=== PATIENT | male | born 1960 | race Caucasian/White ===

== ENCOUNTER 2019-01-01 15:42 | Inpatient (IN) | payer BC, OTHER | END 2019-01-04 16:15 | disposition home or self-care (01) | LOC: ER 15:42 → TELE 20:42 → TELE-WESTW 21:46 ==

== ENCOUNTER 2019-09-26 18:41 | Inpatient (IN) | payer BC ==
[~2019-09-26] VITALS: Ht 188 cm; Wt 114.0 kg
[2019-09-26 19:38] LABS: Basophils # (auto) 0 uL; Basophils % (auto) 0.1 % (0.0-2.0); Eosinophils # (auto) 0.2 uL; Eosinophils % (auto) 3.6 % (0.0-7.0); Hematocrit 41.6 % (41.0-53.0); Hemoglobin 14.6 g/dL (13.5-17.5); Lymphocytes # (auto) 1.2 uL; Lymphocytes % (auto) 25.7 % (10.0-50.0); Mean Corpuscular Hemoglobin 32.3 pg (28.0-32.0); Mean Corpuscular Hgb Conc. 35.1 g/dL (32.0-36.0); Mean Corpuscular Volume 92.1 fL (80.0-100.0); Monocytes # (auto) 0.4 uL; Monocytes % (auto) 8.9 % (0.0-12.0); Neutrophils # (auto) 2.8 uL; Neutrophils % (auto) 61.7 % (37.0-80.0); Nucleated Red Blood Cells % 0.1 %; Platelet Count (auto) 102 10^3/uL (140-450); Red Blood Cells 4.52 10^6/uL (4.5-5.90); Red Cell Distribution Width 12.4 % (11.8-14.3); White Blood Cell 4.5 10^3/uL (4.4-10.8)
[2019-09-26 19:49] LABS: Albumin 3.7 g/dL (3.4-5.0); Anion Gap 5 (5-15); Blood Urea Nitrogen 15 mg/dL (7-18); Calcium 9.1 mg/dL (8.5-10.1); Carbon Dioxide 31 mmol/L (21-32); Chloride 104 mmol/L (98-107); Glucose 118 mg/dL (74-106); Potassium 4.1 mmol/L (3.5-5.1); Sodium 140 mmol/L (136-145)
[2019-09-26 19:54] LABS: Alanine Aminotransferase 42 U/L (16-61); Alkaline Phosphatase 132 U/L (45-117); Aspartate Aminotransferase 50 U/L (15-37); BUN/Creatinine Ratio 16.5; Bilirubin, Total 0.6 mg/dL (0.2-1.0); GFR African American 110 mL/min; GFR Non-African American 91 mL/min; Total Protein 8.2 g/dL (6.4-8.2)
[2019-09-26 19:55] LABS: INR 1.12 (0.9-1.15); Partial Thromboplastin Time 26.6 sec (23.64-32.05)
[2019-09-26] MEDS ORDERED: ONDANSETRON HCL 4 MG/2 ML VIAL IV ONE (22:15)
[2019-09-26] MEDS ORDERED: MORPHINE SULFATE 4 MG/ML SYR/VIAL IV ONE (22:15)
[2019-09-26] MEDS ORDERED: ASPirin 81 mg TAB PO ONE (22:15)
[2019-09-27] VITALS (7 sets, daily range): BP systolic 96–126; BP diastolic 60–71
[2019-09-27] MEDS ORDERED: MORPHINE SULF INJ 2 MG/ML SYRINGE 1ML IV PRN (01:00)
[2019-09-27] MEDS ORDERED: DEXTROSE (50%) 50ML SYRG IV PRN (01:00)
[2019-09-27] MEDS ORDERED: NITROGLYCERIN 0.4 MG SL TAB SL PRN ×2 (01:00)
[2019-09-27] MEDS ORDERED: ONDANSETRON HCL 4 MG/2 ML VIAL IV PRN (01:00)
[2019-09-27] MEDS ORDERED: ACETAMINOPHEN 325 MG TAB PO PRN (01:00)
[2019-09-27] MEDS ORDERED: MORPHINE SULFATE 4 MG/ML SYR/VIAL IV PRN ×2 (01:00→12:30)
[2019-09-27] MEDS ORDERED: METOPROLOL TARTRATE 1MG/1ML-5ML VIAL IV ONE (01:00)
[2019-09-27] MEDS ORDERED: LORazepam 0.5 MG TAB PO PRN (01:45)
--- NOTE | 2019-09-27 03:15 | NUR ---
Telemetry admit from ER TANYAJANES OLIVAS admitted to Telemetry unit after SBAR received. Patient oriented to MYRIAM ARGUETA, RN primary RN, unit [facility], room,273 bed,B and unit policies regarding patient care and visiting hours. Patient now on continuous telemetry monitoring, tele box #61 and telemetry reading on arrival to unit is SB with BBB @ 56. Patient placed on bedside oxygen, weighed by bed scale and encouraged to call if they need something. All questions and concerns addressed, patient verbalized understanding. Note: Received patient up and ambulating to bathroom. No distress or SOB noted after ambulation. Patient denies chest pains. He states, "I just want to sleep". Oxygen 3L/Min via Nasal [place]. Resp even and unlabored. Bed in low position and call light placed in reach.
[2019-09-27] MEDS: InsuLIN REG 1unit/0.01ml Soln (100units/ml) SC SCH ×5 (04:00→20:00)
[2019-09-27] MEDS: ACCU-CHEK COMFORT CURVE STRIP VI SCH ×5 (04:00→20:00)
[2019-09-27] MEDS ORDERED: LORA1TAB12 PO (04:58)
[2019-09-27] MEDS ORDERED: SIMV-8 PO (04:58)
[2019-09-27] MEDS ORDERED: METO25TA5 PO (04:58)
[2019-09-27] MEDS ORDERED: METF-370 PO (04:58)
--- NOTE | 2019-09-27 09:00 | NUR ---
Opening Shift Note Assumed care of patient, awake and alert. Respiratory even and unlabored. No S/S of distress/SOB or pain. Skin is warm and dry to touch. Instructed on POC and to call for assist PRN, will continue to monitor for changes Q1hr and PRN.
[2019-09-27] MEDS: ASPirin 81 mg TAB PO SCH (10:05)
[2019-09-27] MEDS: DOCUSATE SOD 100 MG CAP PO SCH (10:05)
[2019-09-27] MEDS: CLOPIDOGREL BISULFATE 75 MG TAB PO SCH (10:05)
[2019-09-27] MEDS: LISINOPRIL 10 MG TAB PO SCH (10:06)
[2019-09-27 10:47] LABS: Basophils # (auto) 0 uL; Basophils % (auto) 0.2 % (0.0-2.0); Eosinophils # (auto) 0.1 uL; Eosinophils % (auto) 3.2 % (0.0-7.0); Hematocrit 39.9 % (41.0-53.0); Hemoglobin 13.8 g/dL (13.5-17.5); Lymphocytes # (auto) 0.7 uL; Lymphocytes % (auto) 22.3 % (10.0-50.0); Mean Corpuscular Hemoglobin 31.8 pg (28.0-32.0); Mean Corpuscular Hgb Conc. 34.7 g/dL (32.0-36.0); Mean Corpuscular Volume 91.6 fL (80.0-100.0); Monocytes # (auto) 0.3 uL; Monocytes % (auto) 10.2 % (0.0-12.0); Neutrophils # (auto) 2.1 uL; Neutrophils % (auto) 64.1 % (37.0-80.0); Nucleated Red Blood Cells % 0.1 %; Platelet Count (auto) 81 10^3/uL (140-450); Red Blood Cells 4.35 10^6/uL (4.5-5.90); Red Cell Distribution Width 12.6 % (11.8-14.3); White Blood Cell 3.2 10^3/uL (4.4-10.8)
[2019-09-27 11:01] LABS: Calcium 9.2 mg/dL (8.5-10.1); Potassium 3.9 mmol/L (3.5-5.1)
[2019-09-27 11:04] LABS: BUN/Creatinine Ratio 17.5
[2019-09-27] MEDS ORDERED: AZITHROMYCIN 500MG/ 250ML 250 ML IV ONE (12:45)
[2019-09-27] MEDS ORDERED: cefTRIAXone 1GM/50ML D5W 50 ML IV ONE (12:45)
[2019-09-27] MEDS ORDERED: IPRATROPIUM BROM 0.5 MG/2.5ML INH SOL NEB PRN (12:45)
[2019-09-27] MEDS: ACETAMINOPHEN 325 MG TAB PO PRN ×2 (12:47→21:41)
[2019-09-27] MEDS: LORazepam 0.5 MG TAB PO PRN ×2 (12:47→21:40)
--- NOTE | 2019-09-27 14:34 | NUR ---
PT. ASSESSED FOR PRN. TX., PT. IS LYING ON HIS LEFT SIDE HAVING AN ECHOCARDIOGRAM DONE AT THIS TIME. NO RESP. DISTRESS OR SOB NOTED AT THIS TIME. HR=62,RR=18,SP02=99% ON 3LPM NC. PRN. MN. TX. NOT INDICATED AT THIS TIME. PT. INSTRUCTED TO CALL IF NEEDED. NO TX. GIVEN. Addendum: 09/27/19 at 1440 by Corrina Santiago RT Amended: Links added.
[2019-09-27 17:05] LABS: Alcohol, Urine < 3.0 mg/dL (0-5); Amphetamine Screen, Urine NEGATIVE (NEGATIVE); Barbiturate Scree,Urine NEGATIVE (NEGATIVE); Benzodiazephine Screen, Urine NEGATIVE (NEGATIVE); Cannabinoid Screen, Urine NEGATIVE (NEGATIVE); Cocaine Screen, Urine NEGATIVE (NEGATIVE); Opiate Scree,Urine NEGATIVE (NEGATIVE); Phencyclidine Screen, Urine NEGATIVE (NEGATIVE)
[2019-09-27] MEDS: ALBUTEROL SULF 2.5 MG/0.5ML(0.5%) NEB SOLN NEB SCH ×2 (19:49→23:19)
--- NOTE | 2019-09-27 19:49 | NUR ---
RT NOTE: PT SEEN BY RT @ THIS TIME FOR SCHEDULED MED NEB TX. PT SITTING UP @ BEDSIDE ON 3L NASAL CANNULA, SPO2 95%, HR 84, RR 22, CLEAR/DIMINISHED BS. PT REFUSED TX @ THIS TIME. PT STATED BREATHING TX DON'T DO ANYTHING FOR HIM. PT ALSO REQUESTED NOT TO BE WOKEN UP FOR TX. FAMILY @ BEDSIDE AND AWARE. NO SOB OR DISTRESS NOTED @ THIS TIME. WILL CONT TO MONITOR T/O SHIFT.
--- NOTE | 2019-09-27 20:00 | NUR ---
Opening Shift Note Assumed care of patient, awake and alert. No S/S of distress/SOB or pain. Instructed on POC and to call for assist PRN, will continue to monitor for changes Q1hr and PRN.
[2019-09-27] MEDS: ATORVASTATIN 20 MG TAB PO SCH (21:40)
--- NOTE | 2019-09-27 23:19 | NUR ---
RT NOTE: PT CHECKED BY RT @ THIS TIME. PT SLEEPING. NO SOB OR DISTRESS NOTED. SCHEDULED BREATHING NOT GIVEN DUE TO PT'S PREVIOUS REQUEST. WILL CONT TO MONITOR PT T/O SHIFT.
[2019-09-28] VITALS (7 sets, daily range): BP systolic 97–114; BP diastolic 58–69
[2019-09-28] MEDS: ALBUTEROL SULF 2.5 MG/0.5ML(0.5%) NEB SOLN NEB SCH ×3 (02:00→10:30)
--- NOTE | 2019-09-28 02:18 | NUR ---
RT NOTE: PT CHECKED AGAIN FOR SCHEDULED MED NEB TX. PT SLEEPING @ THIS TIME AND NOT WOKEN UP PREVIOUSLY REQUESTED. NO SOB OR DISTRESS NOTED @ THIS TIME.
[2019-09-28] MEDS: InsuLIN REG 1unit/0.01ml Soln (100units/ml) SC SCH ×6 (04:00→23:49)
[2019-09-28] MEDS: ACCU-CHEK COMFORT CURVE STRIP VI SCH ×7 (04:14→23:49)
[2019-09-28] MEDS: ACETAMINOPHEN 325 MG TAB PO PRN ×3 (04:22→21:46)
--- NOTE | 2019-09-28 07:05 | NUR ---
Respiratory note: PT REFUSED MED NEB TX AT THIS TIME. PT STATES HIS BREATHING IS FINE. SPO2 100% ON 3L, HR 99, RR 18. NO S/S OF RESP DISTRESS. PT AWARE TO HAVE RT PAGED IF NEEDED.
--- NOTE | 2019-09-28 07:15 | NUR ---
Opening Shift Note Assumed care of patient, awake and alert. No S/S of distress/SOB or pain. Instructed on POC and to call for assist PRN, will continue to monitor for changes Q1hr and PRN. Fall precautions in place per safety protocol.
[2019-09-28] MEDS: LISINOPRIL 10 MG TAB PO SCH (10:00)
--- NOTE | 2019-09-28 10:00 | NUR ---
IV removal IV DC'd with clean sterile technique, catheter fully intact. Pressure dressing applied to site. Patient tolerated well. IV access obtained, via clean sterile technique by inserting 20 gauge catheter at the right hand after 1 attempt. IV secured properly. No trauma to site. Patient tolerated well.
--- NOTE | 2019-09-28 10:22 | NUR ---
Hospitalist at bedside MD Baldwin at bedside, aware of patient status including high d-dimer. MD Baldwin ordered new tests. Will carry out new orders and will cont to monitor patient.
--- NOTE | 2019-09-28 10:30 | NUR ---
Respiratory note: PT REFUSED MED NEB TX. PT STATES TX DOESN'T DO ANYTHING FOR HIM. PT APPEARS TO BE IN STABLE CONDITION. NO S/S OF RESP DISTRESS.
[2019-09-28] MEDS ORDERED: IOHEXOL 350 MG/ML 100ML IJ ONE (10:55)
[2019-09-28] MEDS: DOCUSATE SOD 100 MG CAP PO SCH (12:20)
[2019-09-28] MEDS: AZITHROMYCIN 500MG/ 250ML 250 ML IV SCH (12:20)
[2019-09-28] MEDS: cefTRIAXone 1GM/50ML D5W 50 ML IV SCH (12:20)
[2019-09-28] MEDS: CLOPIDOGREL BISULFATE 75 MG TAB PO SCH (12:21)
[2019-09-28] MEDS: ASPirin 81 mg TAB PO SCH (12:21)
--- NOTE | 2019-09-28 13:00 | NUR ---
Patient received a CT with contrast. No metformin to be given for the next 48 hours.
[2019-09-28] MEDS ORDERED: ALBUTEROL SULF 2.5 MG/0.5ML(0.5%) NEB SOLN NEB PRN (14:30)
[2019-09-28] MEDS ORDERED: MORPHINE SULF INJ 2 MG/ML SYRINGE 1ML IV PRN (14:30)
--- NOTE | 2019-09-28 19:14 | NUR ---
Respiratory note: AT BEDSIDE TO ASSESS FOR PRN TX, TX NOT INDICATED AT THIS TIME. BS ARE CLEAR DIMINISHED T/O, HR 60S, POX 96-98% ON 3LPM NC, PT AWARE I CAN BE PAGED AT ANY TIME. RT NAME AND PAGER ASSIGNMENT WRITTEN ON PTS ROOM BOARD WILL CONTINUE TO MONITOR.
--- NOTE | 2019-09-28 19:15 | NUR ---
Endorsed care to night REGGIE Gray. Patient resting in bed, no distress, sob, or pain noted at this time.
[2019-09-28] MEDS: ATORVASTATIN 20 MG TAB PO SCH (21:46)
[2019-09-28] MEDS: LORazepam 0.5 MG TAB PO PRN (21:47)
--- NOTE | 2019-09-29 03:34 | NUR ---
OPENING NOTE- NOC SHIFT PATIENT IS ALERT AND ORIENTED X4, ANSWERS IN COMPLETE SENTENCES AND MAKES APPROPRIATE EYE CONTACT. PATIENT IS IN BED, BED IS LOCKED AT LOWEST POSITION, BED RAILS UP X2 AND HEAD OF BED IS UP >30 DEGREES FOR SAFETY PRECUATIONS. DISCUSSED POC WITH PATIENT AND INSTRUCTED PATIENT TO CAOO PRN; PATIENT VERBALIZED UNDERSTANDING. WILL CONTINUE TO MONTITOR Q1H AND PRN.
[2019-09-29] MEDS: InsuLIN REG 1unit/0.01ml Soln (100units/ml) SC SCH ×4 (04:00→16:00)
[2019-09-29] MEDS: ACCU-CHEK COMFORT CURVE STRIP VI SCH ×4 (04:22→16:00)
[2019-09-29 06:00] VITALS: BP 101/66
--- NOTE | 2019-09-29 06:45 | NUR ---
CLOSING NOTE- NOC SHIFT PATIENT IS COMFORTABLE IN BED. NO CHANGES DURING EARLY CHILDHOOD EDUCATOR AIDE. PATIENT RESTED WELL THROUGH THE NIGHT.
[2019-09-29 08:00] VITALS: BP 101/63
--- NOTE | 2019-09-29 08:00 | NUR ---
Received pt resting sitting on the side of the bed, call light with in reach, no pain or distress noted or reported at this time, will continue to monitor pt.
--- NOTE | 2019-09-29 08:13 | NUR ---
Respiratory note: AT BEDSIDE TO ASSESS FOR PRN TX, TX NOT INDICATED AT THIS TIME. BS ARE CLEAR DIMINISHED T/O, HR 82, POX 96% ON 3LPM NC, PT AWARE I CAN BE PAGED AT ANY TIME. RT NAME AND PAGER ASSIGNMENT WRITTEN ON PTS ROOM BOARD WILL CONTINUE TO MONITOR.
[2019-09-29] MEDS: cefTRIAXone 1GM/50ML D5W 50 ML IV SCH (09:14)
[2019-09-29] MEDS: LISINOPRIL 10 MG TAB PO SCH (10:00)
[2019-09-29] MEDS: DOCUSATE SOD 100 MG CAP PO SCH (10:24)
[2019-09-29] MEDS: AZITHROMYCIN 500MG/ 250ML 250 ML IV SCH (10:24)
[2019-09-29] MEDS: ASPirin 81 mg TAB PO SCH (10:24)
[2019-09-29] MEDS: CLOPIDOGREL BISULFATE 75 MG TAB PO SCH (10:25)
[2019-09-29 12:00] VITALS: BP 117/71
--- NOTE | 2019-09-29 12:00 | NUR ---
Assessment and SS consult Pt is a 58 yr old alert and oriented male. SS consult given for "living situation." Prior to admit, pt lived alone. His son, Mil Thao, is his emergency contact at [phone]. Prior to admit, pt used 02 in the home but was otherwise ambulatory and independent with ADL's with no HH. Pt admitted with chest pains and stated that his Primary is Dr. Fanny Plasencia, has an AD w/ his son, Lionel, as POA and gets $6000 ss income/ pension. Pt will d/c home upon d/c. Pt stated that he feels safe in his current living situation and is agreeable to d/c home once medially cleared. His son, Mil, will transport him home upon d/c. Addendum: 09/29/19 at 1217 by ZAHRA NIETO SS Amended: Links added.
--- NOTE | 2019-09-29 12:00 | NUR ---
Assessment and SS consult Pt is Addendum: 09/29/19 at 1217 by ZAHRA NIETO SS Amended: Links added.
[2019-09-29 16:37] VITALS: BP 117/71
--- NOTE | 2019-09-29 17:10 | NUR ---
Discharge instructions given as ordered. Encourage to follow up with PMD Dr. Plasencia on 10/03/19 at 3:30 pm [place] [id number] [place] [address], follow up with [employer], rn research, and gastro group as schedule. All questions and concerns addressed. Patient and patient's son verbalized understanding. Medication reconciliation form completed and copy given to patient. No home medications held in Pharmacy, and no needed vaccines to be given. IV removed with catheter intact, pressure dressing applied. Telemetry unit returned to ICU. Patient taken to vehicle via wheelchair with all personal belongings, accompanied by staff and family member. No distress noted at time of departure.
== END 2019-09-29 17:10 | disposition home or self-care (01) | DRG 391 ==
LOC: EDBD 18:41 → ER 18:47 → TELE 18:48 → TELE-WESTW 09-27 03:14
PROVIDERS: ADMIT Hospitalist; ATTEND Hospitalist
DX: K21.9 Gastro-esophageal reflux disease without esophagitis (principal); J96.01 Acute respiratory failure with hypoxia; D61.818 Other pancytopenia; K76.6 Portal hypertension; E11.9 Type 2 diabetes mellitus without complications; E78.5 Hyperlipidemia, unspecified; I11.0 Hypertensive heart disease with heart failure; I25.10 Atherosclerotic heart disease of native coronary artery without angina pectoris; I27.29 Other secondary pulmonary hypertension; I50.9 Heart failure, unspecified; J44.9 Chronic obstructive pulmonary disease, unspecified; J84.10 Pulmonary fibrosis, unspecified; K29.70 Gastritis, unspecified, without bleeding; K70.30 Alcoholic cirrhosis of liver without ascites; F32.9 Major depressive disorder, single episode, unspecified; F41.9 Anxiety disorder, unspecified; E78.00 Pure hypercholesterolemia, unspecified; Z99.81 Dependence on supplemental oxygen; Z87.891 Personal history of nicotine dependence
CPT/HCPCS: 36415; 71045; 71275; 80048; 80053; 80061; 80307; 82962; 83880; 84484; 85025; 85379; 85610; 85730; 87804; 93005; 93306; 93970; 96374; 96375; G0378; J0696; J2405

== ENCOUNTER 2020-12-14 22:35 | Inpatient (IN) | payer BC ==
[~2020-12-14] VITALS: Ht 185.4 cm; Wt 92.5 kg
[~2020-12-14 22:35] MED LIST: LORA1TAB23 PO; METF-370 PO; METO25TA5 PO; SIMV-8 PO
[2020-12-14 22:49] VITALS: BP 117/77
[2020-12-14 23:11] LABS: Basophils # (auto) 0 10 ^3/uL (0-0.2); Basophils % (auto) 0.2 % (0.0-2.0); Eosinophils # (auto) 0.1 10 ^3/uL (0-0.8); Eosinophils % (auto) 1.2 % (0.0-7.0); Hematocrit 44.5 % (41.0-53.0); Hemoglobin 14.7 g/dL (13.5-17.5); Lymphocytes # (auto) 0.6 10 ^3/uL (0.4-5.4); Lymphocytes % (auto) 7.2 % (10.0-50.0); Mean Corpuscular Hemoglobin 31.5 pg (28.0-32.0); Mean Corpuscular Volume 95.4 fL (80.0-100.0); Monocytes # (auto) 0.5 10 ^3/uL (0-1.3); Neutrophils # (auto) 7.2 10 ^3/uL (1.6-8.6); Neutrophils % (auto) 85.4 % (37.0-80.0); Platelet Count (auto) 107 10^3/uL (140-450); Red Blood Cells 4.66 10^6/uL (4.5-5.90); Red Cell Distribution Width 15.3 % (11.8-14.3); White Blood Cell 8.4 10^3/uL (4.4-10.8)
[2020-12-14 23:28] LABS: INR 1.28 (0.9-1.15)
[2020-12-14 23:31] LABS: Albumin 3.5 g/dL (3.4-5.0); BUN/Creatinine Ratio 42.4; Calcium 9.3 mg/dL (8.5-10.1); Magnesium 2.2 mg/dL (1.6-2.6); Potassium 4.1 mmol/L (3.5-5.1)
[2020-12-14 23:36] LABS: Bilirubin, Total 0.9 mg/dL (0.2-1.0); Total Protein 8.2 g/dL (6.4-8.2)
[2020-12-15 00:05] VITALS: BP 101/66
[2020-12-15 00:41] VITALS: BP 101/66
[2020-12-15] MEDS ORDERED: FUROSEMIDE 40 MG/4 ML VIAL IV ONE (01:30)
[2020-12-15] MEDS ORDERED: AMPICILLIN & SULBACTAM SODIUM 3 GM in SODIUM CHL 0.9% 100 ML IV STA (01:32)
[2020-12-15 01:47] VITALS: BP 100/65
[2020-12-15] MEDS ORDERED: ACETAMINOPHEN 500 MG TAB PO ONE (02:30)
[2020-12-15] MEDS ORDERED: PIPERACILLIN-TAZOB 3.375GM 100 ML IV ONE (02:30)
[2020-12-15] MEDS ORDERED: MORPHINE SULF INJ 2 MG/ML SYRINGE 1ML IV PRN (02:45)
[2020-12-15] MEDS ORDERED: ONDANSETRON HCL 4 MG/2 ML VIAL IV PRN (02:45)
[2020-12-15] MEDS ORDERED: DEXTROSE (50%) 50ML SYRG IV PRN (02:45)
[2020-12-15] MEDS ORDERED: ACETAMINOPHEN 325 MG TAB PO PRN (02:45)
[2020-12-15] MEDS ORDERED: TEMAZEPAM 15 MG CAP PO PRN (02:45)
[2020-12-15] MEDS ORDERED: NITROGLYCERIN 0.4 MG SL TAB SL PRN (02:45)
[2020-12-15 03:10] LABS: Urine Bacteria NONE SEEN /hpf (None Seen); Urine Blood TRACE /uL (Negative); Urine Mucus FEW (None Seen); Urine Specific Gravity 1.014 (1.001-1.035); Urine WBC <1 /hpf (0 - 3)
[2020-12-15 04:08] VITALS: BP 92/59
[2020-12-15] MEDS ORDERED: ALBUMIN 5% 250 ML IV ONE (05:00)
[2020-12-15] MEDS ORDERED: CLINDAMYCIN 600MG IV 50 ML IV SCH (06:00)
[2020-12-15] MEDS: InsuLIN REG 1unit/0.01ml Soln (100units/ml) SC SCH ×4 (06:02→23:30)
[2020-12-15 06:09] VITALS: BP 100/69
[2020-12-15] MEDS: IPRATROPIUM BROM 0.5 MG/2.5ML INH SOL NEB SCH ×3 (06:09→18:31)
[2020-12-15] MEDS: ALBUTEROL SULF 2.5 MG/0.5ML(0.5%) NEB SOLN NEB SCH ×3 (06:09→18:32)
[2020-12-15] MEDS ORDERED: IOHEXOL 350 MG/ML 100ML IJ ONE (08:00)
[2020-12-15] MEDS: ACCU-CHEK COMFORT CURVE STRIP VI SCH ×4 (08:11→23:16)
[2020-12-15] MEDS ORDERED: CLOPIDOGREL BISULFATE 75 MG TAB PO SCH (10:00)
[2020-12-15] MEDS: METOPROLOL SUCCINATE XL 50 MG TAB PO SCH (10:07)
[2020-12-15] MEDS: FAMOTIDINE 20 MG TAB PO SCH ×2 (10:07→23:30)
[2020-12-15] MEDS: GABAPENTIN 100 MG CAP PO SCH (10:07)
[2020-12-15] MEDS: methylPREDNISolone SOD SUCC 125 MG/2 ML VL IV SCH ×2 (10:07→23:29)
[2020-12-15] MEDS: ENOXAPARIN SOD 40 MG/0.4 ML SYRINGE SC SCH (10:07)
[2020-12-15] MEDS: levoFLOXacin 500MG 100 ML IV SCH (11:22)
[2020-12-15] MEDS: HYDROcodone-ACET 5/325MG TAB PO PRN ×3 (11:28→23:24)
[2020-12-15 11:32] LABS: Basophils # (auto) 0 10 ^3/uL (0-0.2); Basophils % (auto) 0.1 % (0.0-2.0); Eosinophils # (auto) 0.1 10 ^3/uL (0-0.8); Lymphocytes # (auto) 0.4 10 ^3/uL (0.4-5.4); Monocytes # (auto) 0.3 10 ^3/uL (0-1.3); Neutrophils # (auto) 3.7 10 ^3/uL (1.6-8.6); Nucleated Red Blood Cells % 0.1 %; Red Blood Cells 3.99 10^6/uL (4.5-5.90)
[2020-12-15 11:34] LABS: Eosinophils % (auto) 1.5 % (0.0-7.0); Hematocrit 37.6 % (41.0-53.0); Hemoglobin 12.5 g/dL (13.5-17.5); Lymphocytes % (auto) 7.9 % (10.0-50.0); Mean Corpuscular Hemoglobin 31.4 pg (28.0-32.0); Mean Corpuscular Hgb Conc. 33.3 g/dL (32.0-36.0); Mean Corpuscular Volume 94.2 fL (80.0-100.0); Monocytes % (auto) 6.5 % (0.0-12.0); Platelet Count (auto) 62 10^3/uL (140-450); Red Cell Distribution Width 15.2 % (11.8-14.3); White Blood Cell 4.5 10^3/uL (4.4-10.8)
[2020-12-15 11:53] LABS: Calcium 8.5 mg/dL (8.5-10.1); Potassium 3.5 mmol/L (3.5-5.1)
[2020-12-15 11:55] LABS: BUN/Creatinine Ratio 49.1
[2020-12-15] MEDS ORDERED: LORazepam 0.5 MG TAB PO PRN (20:15)
[2020-12-15] MEDS: ATORVASTATIN 20 MG TAB PO SCH (23:30)
[2020-12-16] VITALS (19 sets, daily range): BP systolic 91–143; BP diastolic 42–83
[2020-12-16] MEDS: guaiFENesin-DM 100/10mg/5ml SYR PO PRN ×2 (02:52→23:07)
[2020-12-16] MEDS: ACCU-CHEK COMFORT CURVE STRIP VI SCH ×4 (06:34→21:34)
[2020-12-16] MEDS: InsuLIN REG 1unit/0.01ml Soln (100units/ml) SC SCH ×4 (06:34→21:34)
[2020-12-16 06:50] LABS: Calcium 9.9 mg/dL (8.5-10.1); Potassium 4.5 mmol/L (3.5-5.1)
[2020-12-16 07:21] LABS: Basophils # (auto) 0 10 ^3/uL (0-0.2); Basophils % (auto) 0.1 % (0.0-2.0); Eosinophils # (auto) 0 10 ^3/uL (0-0.8); Eosinophils % (auto) 0.1 % (0.0-7.0); Hematocrit 40.3 % (41.0-53.0); Hemoglobin 13.3 g/dL (13.5-17.5); Lymphocytes # (auto) 0.3 10 ^3/uL (0.4-5.4); Lymphocytes % (auto) 7.7 % (10.0-50.0); Mean Corpuscular Hemoglobin 31.4 pg (28.0-32.0); Mean Corpuscular Hgb Conc. 32.9 g/dL (32.0-36.0); Mean Corpuscular Volume 95.4 fL (80.0-100.0); Monocytes # (auto) 0.1 10 ^3/uL (0-1.3); Monocytes % (auto) 2.9 % (0.0-12.0); Neutrophils % (auto) 89.2 % (37.0-80.0); Nucleated Red Blood Cells % 0.2 %; Red Blood Cells 4.22 10^6/uL (4.5-5.90); Red Cell Distribution Width 15.5 % (11.8-14.3); White Blood Cell 3.4 10^3/uL (4.4-10.8)
[2020-12-16 07:22] LABS: Platelet Count (auto) 67 10^3/uL (140-450)
[2020-12-16] MEDS: IPRATROPIUM BROM 0.5 MG/2.5ML INH SOL NEB SCH ×4 (07:24→18:23)
[2020-12-16] MEDS: ALBUTEROL SULF 2.5 MG/0.5ML(0.5%) NEB SOLN NEB SCH ×4 (07:24→18:23)
[2020-12-16] MEDS: ENOXAPARIN SOD 40 MG/0.4 ML SYRINGE SC SCH (10:00)
[2020-12-16] MEDS: METOPROLOL SUCCINATE XL 50 MG TAB PO SCH (10:00)
[2020-12-16] MEDS: levoFLOXacin 500MG 100 ML IV SCH (10:27)
[2020-12-16] MEDS: GABAPENTIN 100 MG CAP PO SCH (10:27)
[2020-12-16] MEDS: methylPREDNISolone SOD SUCC 125 MG/2 ML VL IV SCH (10:27)
[2020-12-16] MEDS: FAMOTIDINE 20 MG TAB PO SCH ×2 (10:27→21:32)
[2020-12-16] MEDS ORDERED: LORazepam 0.5 MG TAB PO PRN (11:45)
[2020-12-16] MEDS ORDERED: LORazepam 0.5 MG TAB PO SCH (12:00)
[2020-12-16] MEDS ORDERED: ASPI-498 PO (14:25)
[2020-12-16] MEDS ORDERED: CLOP75TA28 PO (14:25)
[2020-12-16] MEDS: HYDROcodone-ACET 5/325MG TAB PO PRN (19:59)
[2020-12-16] MEDS: ATORVASTATIN 20 MG TAB PO SCH (21:32)
[2020-12-16] MEDS: methylPREDNISolone SOD SUCC 40 MG/ML VL IV SCH (21:32)
[2020-12-16] MEDS: LORazepam 0.5 MG TAB PO PRN (21:33)
[2020-12-17] VITALS (15 sets, daily range): BP systolic 91–120; BP diastolic 48–73
[2020-12-17] MEDS: HYDROcodone-ACET 5/325MG TAB PO PRN ×2 (06:11→20:22)
[2020-12-17] MEDS: InsuLIN REG 1unit/0.01ml Soln (100units/ml) SC SCH ×4 (06:11→21:03)
[2020-12-17] MEDS: ACCU-CHEK COMFORT CURVE STRIP VI SCH ×4 (06:12→21:03)
[2020-12-17] MEDS: ALBUTEROL SULF 2.5 MG/0.5ML(0.5%) NEB SOLN NEB SCH ×3 (06:38→19:10)
[2020-12-17] MEDS: IPRATROPIUM BROM 0.5 MG/2.5ML INH SOL NEB SCH ×3 (06:38→19:09)
[2020-12-17] MEDS: levoFLOXacin 500MG 100 ML IV SCH (10:34)
[2020-12-17] MEDS: methylPREDNISolone SOD SUCC 40 MG/ML VL IV SCH ×2 (10:36→21:02)
[2020-12-17] MEDS: GABAPENTIN 100 MG CAP PO SCH (10:36)
[2020-12-17] MEDS: ASPirin 81 mg TAB PO SCH (10:37)
[2020-12-17] MEDS: FAMOTIDINE 20 MG TAB PO SCH ×2 (10:37→21:02)
[2020-12-17] MEDS: METOPROLOL SUCCINATE XL 50 MG TAB PO SCH (10:37)
[2020-12-17] MEDS: CLOPIDOGREL BISULFATE 75 MG TAB PO SCH (10:37)
[2020-12-17] MEDS ORDERED: FLUTICASONE PROP NASAL SPR 0.05 % (50MCG) 16GM EACHNOSTRI ONE (11:45)
[2020-12-17] MEDS ORDERED: SALINE 0.65 % NASAL SPRAY 45ML BOTTLE EACHNOSTRI PRN (15:00)
[2020-12-17] MEDS ORDERED: FUROSEMIDE 20 MG/2 ML VIAL IV ONE (15:00)
[2020-12-17] MEDS: FLUTICASONE PROP NASAL SPR 0.05 % (50MCG) 16GM EACHNOSTRI SCH ×2 (16:42→22:00)
[2020-12-17] MEDS ORDERED: DOPamine 1600MCG/ML D5W 250 ML IV SCH (19:30)
[2020-12-17] MEDS: LORazepam 0.5 MG TAB PO PRN (21:01)
[2020-12-17] MEDS: ATORVASTATIN 20 MG TAB PO SCH (21:02)
[2020-12-17 21:57] LABS: Basophils # (auto) 0 10 ^3/uL (0-0.2); Eosinophils # (auto) 0 10 ^3/uL (0-0.8); Hematocrit 45.3 % (41.0-53.0); Lymphocytes # (auto) 0.3 10 ^3/uL (0.4-5.4); Mean Corpuscular Hemoglobin 31.7 pg (28.0-32.0); Mean Corpuscular Hgb Conc. 33.1 g/dL (32.0-36.0); Mean Corpuscular Volume 95.8 fL (80.0-100.0); Monocytes # (auto) 0.6 10 ^3/uL (0-1.3); Monocytes % (auto) 5.9 % (0.0-12.0); Neutrophils # (auto) 8.8 10 ^3/uL (1.6-8.6); Neutrophils % (auto) 91.1 % (37.0-80.0); Platelet Count (auto) 129 10^3/uL (140-450); Red Blood Cells 4.73 10^6/uL (4.5-5.90); Red Cell Distribution Width 15.7 % (11.8-14.3); White Blood Cell 9.7 10^3/uL (4.4-10.8)
[2020-12-17 22:04] LABS: BUN/Creatinine Ratio 43.6; Calcium 10.3 mg/dL (8.5-10.1); Potassium 4.4 mmol/L (3.5-5.1)
[2020-12-17] MEDS: guaiFENesin-DM 100/10mg/5ml SYR PO PRN (22:47)
[2020-12-18] VITALS (7 sets, daily range): BP systolic 116–150; BP diastolic 70–88
[2020-12-18] MEDS: HYDROcodone-ACET 5/325MG TAB PO PRN (05:46)
[2020-12-18] MEDS: InsuLIN REG 1unit/0.01ml Soln (100units/ml) SC SCH ×2 (05:47→11:38)
[2020-12-18] MEDS: ACCU-CHEK COMFORT CURVE STRIP VI SCH ×2 (05:48→11:33)
[2020-12-18] MEDS: ALBUTEROL SULF 2.5 MG/0.5ML(0.5%) NEB SOLN NEB SCH ×2 (06:42→12:33)
[2020-12-18] MEDS: IPRATROPIUM BROM 0.5 MG/2.5ML INH SOL NEB SCH ×2 (06:42→12:33)
[2020-12-18] MEDS: levoFLOXacin 500MG 100 ML IV SCH (09:56)
[2020-12-18] MEDS: FAMOTIDINE 20 MG TAB PO SCH (09:57)
[2020-12-18] MEDS: methylPREDNISolone SOD SUCC 40 MG/ML VL IV SCH (09:57)
[2020-12-18] MEDS: ASPirin 81 mg TAB PO SCH (09:57)
[2020-12-18] MEDS: CLOPIDOGREL BISULFATE 75 MG TAB PO SCH (09:57)
[2020-12-18] MEDS: FLUTICASONE PROP NASAL SPR 0.05 % (50MCG) 16GM EACHNOSTRI SCH (09:57)
[2020-12-18] MEDS: GABAPENTIN 100 MG CAP PO SCH (09:57)
[2020-12-18] MEDS: METOPROLOL SUCCINATE XL 50 MG TAB PO SCH (09:58)
[2020-12-18] MEDS ORDERED: IPR002IS NEB (10:35)
[2020-12-18] MEDS ORDERED: DEXT1SYP9 PO (10:35)
[2020-12-18] MEDS ORDERED: PRED20TA2 PO (10:35)
[2020-12-18] MEDS ORDERED: LEVO500T31 PO (10:35)
[2020-12-18] MEDS ORDERED: ALB5IS NEB (10:35)
== END 2020-12-18 16:45 | disposition hospice, home (50) | DRG 193 ==
LOC: EDBD 22:35 → ER 22:39 → TELE 12-15 02:34 → DOU IN ICU 12-15 22:57
PROVIDERS: ADMIT Nurse Practitioner; ATTEND Internal Medicine
PROC: 5A09357 Assistance with Respiratory Ventilation, Less than 24 Consecutive Hours, Continuous Positive Airway Pressure (ICD-10-PCS; principal; 2020-12-15)
DX: J18.9 Pneumonia, unspecified organism (principal); J96.21 Acute and chronic respiratory failure with hypoxia; J96.22 Acute and chronic respiratory failure with hypercapnia; J44.0 Chronic obstructive pulmonary disease with (acute) lower respiratory infection; J44.1 Chronic obstructive pulmonary disease with (acute) exacerbation; J84.112 Idiopathic pulmonary fibrosis; E11.9 Type 2 diabetes mellitus without complications; E78.5 Hyperlipidemia, unspecified; Z20.822 Contact with and (suspected) exposure to COVID-19; F41.9 Anxiety disorder, unspecified; I10 Essential (primary) hypertension; I25.10 Atherosclerotic heart disease of native coronary artery without angina pectoris; K70.30 Alcoholic cirrhosis of liver without ascites; I27.20 Pulmonary hypertension, unspecified; F32.9 Major depressive disorder, single episode, unspecified; Z76.82 Awaiting organ transplant status; Z82.0 Family history of epilepsy and other diseases of the nervous system; Z82.61 Family history of arthritis; Z83.3 Family history of diabetes mellitus; Z91.19 Patient's noncompliance with other medical treatment and regimen; Z95.5 Presence of coronary angioplasty implant and graft; Z99.81 Dependence on supplemental oxygen
CPT/HCPCS: 36415; 36600; 71045; 71275; 80048; 80053; 81001; 82805; 82962; 83605; 83735; 83880; 84484; 85025; 85379; 85610; 87040; 87081; 87426; 93306; 93970; 94640; 94660; 96365; 96367; 96375; G0378; J1815; J1956; J2543; J3490

== ENCOUNTER 2020-12-19 12:14 | Inpatient (IN) | payer BC ==
[~2020-12-19] VITALS: Ht 188 cm; Wt 107.3 kg
[2020-12-19] VITALS (28 sets, daily range): BP systolic 78–116; BP diastolic 54–75
[~2020-12-19 12:14] MED LIST changes: +ALB5IS NEB; +ASPI-498 PO; +CLOP75TA28 PO; +DEXT1SYP9 PO; +IPR002IS NEB; +LEVO500T31 PO; +PRED20TA2 PO
[2020-12-19] MEDS ORDERED: NOREPINEPHRINE 8 MG/250ML KIT 250 ML IV ONE (12:25)
[2020-12-19] MEDS ORDERED: SUCCINYLCHOLINE CHLORIDE 20 MG/ML 10ML VIAL IV ONE (12:30)
[2020-12-19] MEDS ORDERED: methylPREDNISolone SOD SUCC 125 MG/2 ML VL IV ONE (12:30)
[2020-12-19] MEDS ORDERED: NOREPINEPHRINE 8 MG/250ML KIT 250 ML IV SCH ×2 (12:30→13:00)
[2020-12-19] MEDS ORDERED: ETOMIDATE (2MG/ML) 20ML VIAL IV ONE (12:30)
[2020-12-19] MEDS: MIDAZOLAM DRIP 50 mg/50mL 50 ML IV SCH ×2 (12:40→23:00)
[2020-12-19] MEDS ORDERED: fentaNYL Drip 2500mCg/250mlNS 250 ML IV ONE (12:44)
[2020-12-19] MEDS: NOREPINEPHRINE 8 MG/250ML KIT 250 ML IV SCH ×2 (12:45→20:49)
[2020-12-19] MEDS: fentaNYL Drip 2500mCg/250mlNS 250 ML IV SCH (12:45)
[2020-12-19] MEDS ORDERED: NITROGLYCERIN 0.4 MG SL TAB SL PRN ×2 (13:00→13:15)
[2020-12-19] MEDS ORDERED: MORPHINE SULF INJ 2 MG/ML SYRINGE 1ML IV PRN ×3 (13:00→13:15)
[2020-12-19] MEDS ORDERED: PROPOFOL 100 ML IV ONE (13:03)
[2020-12-19] MEDS: PROPOFOL 100 ML IV SCH (13:10)
[2020-12-19] MEDS ORDERED: ONDANSETRON HCL 4 MG/2 ML VIAL IV PRN (13:15)
[2020-12-19] MEDS ORDERED: LORazepam 0.5 MG TAB PO PRN (13:15)
[2020-12-19] MEDS ORDERED: ATORVASTATIN 20 MG TAB PO ONE (13:15)
[2020-12-19] MEDS ORDERED: ACETAMINOPHEN 325 MG TAB PO PRN (13:15)
[2020-12-19] MEDS ORDERED: DEXTROSE (50%) 50ML SYRG IV PRN (13:15)
[2020-12-19] MEDS ORDERED: VANCOMYCIN PER PHARMACY 1,000 MG IV SCH (13:15)
[2020-12-19] MEDS ORDERED: PIPERACILLIN-TAZO 4.5GM 100 ML IV ONE (13:15)
[2020-12-19] MEDS ORDERED: HYDROcodone-ACET 5/325MG TAB PO PRN (13:15)
[2020-12-19] MEDS ORDERED: ALBUMIN 25% 100 ML IV ONE (13:30)
[2020-12-19 13:55] LABS: Basophils # (auto) 0 10 ^3/uL (0-0.2); Basophils % (auto) 0.1 % (0.0-2.0); Eosinophils # (auto) 0 10 ^3/uL (0-0.8); Eosinophils % (auto) 0.2 % (0.0-7.0); Hematocrit 45.3 % (41.0-53.0); Hemoglobin 14.8 g/dL (13.5-17.5); Lymphocytes # (auto) 0.8 10 ^3/uL (0.4-5.4); Lymphocytes % (auto) 8.3 % (10.0-50.0); Mean Corpuscular Hemoglobin 31.8 pg (28.0-32.0); Mean Corpuscular Hgb Conc. 32.8 g/dL (32.0-36.0); Mean Corpuscular Volume 97.2 fL (80.0-100.0); Monocytes # (auto) 1.2 10 ^3/uL (0-1.3); Monocytes % (auto) 11.5 % (0.0-12.0); Neutrophils # (auto) 8.2 10 ^3/uL (1.6-8.6); Neutrophils % (auto) 79.9 % (37.0-80.0); Platelet Count (auto) 110 10^3/uL (140-450); Red Blood Cells 4.66 10^6/uL (4.5-5.90); Red Cell Distribution Width 15.5 % (11.8-14.3); White Blood Cell 10.2 10^3/uL (4.4-10.8)
[2020-12-19] MEDS: EPINEPHrine HCL 250 ML IV SCH (14:00)
[2020-12-19] MEDS: VASOPRESSIN 50 UNITS in D5W 5% 247.5 ML IV SCH (14:00)
[2020-12-19] MEDS: PHENYLEPHRINE IV 250 ML IV SCH ×2 (14:00→22:20)
[2020-12-19 14:12] LABS: Albumin 3.2 g/dL (3.4-5.0); Calcium 9.4 mg/dL (8.5-10.1); Magnesium 2.8 mg/dL (1.6-2.6); Potassium 4.3 mmol/L (3.5-5.1)
[2020-12-19 14:26] LABS: BUN/Creatinine Ratio 42.9; Bilirubin, Total 1.4 mg/dL (0.2-1.0); CRP High Sensitivity 3.29 mg/dL (< 0.3); Total Protein 7.1 g/dL (6.4-8.2)
[2020-12-19] MEDS: SODIUM CHLOR 0.9% PF (SALINE LOCK) 10ML VIAL/SYR IV SCH ×2 (14:39→22:00)
[2020-12-19] MEDS: ALBUMIN 25% 50 ML IV SCH ×2 (14:39→21:14)
[2020-12-19] MEDS: VANCOMYCIN 1GM/250ML 250 ML IV SCH (15:06)
[2020-12-19] MEDS: HYDROCORTISONE SOD SUCC 100 MG/2ML INJ VIAL IV SCH (18:38)
[2020-12-19] MEDS: PIPERACILLIN-TAZOB 3.375GM 100 ML IV SCH (18:38)
[2020-12-19] MEDS: InsuLIN REG 1unit/0.01ml Soln (100units/ml) SC SCH (18:40)
[2020-12-19] MEDS: ACCU-CHEK COMFORT CURVE STRIP VI SCH (18:40)
[2020-12-19] MEDS ORDERED: ASPirin 325 MG TAB NG ONE (20:30)
[2020-12-19] MEDS ORDERED: ENOXAPARIN SOD 40 MG/0.4 ML SYRINGE SC ONE (21:24)
[2020-12-19] MEDS: ENOXAPARIN SOD 40 MG/0.4 ML SYRINGE SC SCH (21:25)
[2020-12-19 21:28] LABS: INR 1.24 (0.9-1.15)
[2020-12-19] MEDS: METOPROLOL TARTRATE 25 MG TAB PO SCH (22:00)
[2020-12-19] MEDS: FAMOTIDINE (10MG/ML) 2ML VL IV SCH (22:00)
[2020-12-19] MEDS: ATORVASTATIN 20 MG TAB PO SCH (22:39)
[2020-12-20] VITALS (102 sets, daily range): BP systolic 88–111; BP diastolic 51–74
[2020-12-20] MEDS: HYDROCORTISONE SOD SUCC 100 MG/2ML INJ VIAL IV SCH ×2 (00:06→05:39)
[2020-12-20] MEDS: PIPERACILLIN-TAZOB 3.375GM 100 ML IV SCH ×4 (00:06→18:01)
[2020-12-20] MEDS: InsuLIN REG 1unit/0.01ml Soln (100units/ml) SC SCH ×4 (00:23→18:11)
[2020-12-20] MEDS ORDERED: AMIODARONE 450mg/250ml AE 250 ML IV SCH (01:00)
[2020-12-20] MEDS ORDERED: AMIODARONE HCL (50 MG/ ML) 3 ML VIAL IV ONE (01:00)
[2020-12-20] MEDS: MIDAZOLAM DRIP 50 mg/50mL 50 ML IV SCH ×7 (01:00→23:19)
[2020-12-20] MEDS ORDERED: AMIODARONE HCL 150 MG in D5W 5% 100 ML IV ONE (01:00)
[2020-12-20] MEDS ORDERED: AMIODARONE 450mg/250ml AE 250 ML IV ONE (01:02)
[2020-12-20] MEDS: VANCOMYCIN 1GM/250ML 250 ML IV SCH ×2 (01:55→13:42)
[2020-12-20] MEDS: PROPOFOL 100 ML IV SCH ×2 (02:00→15:16)
[2020-12-20] MEDS: NOREPINEPHRINE 8 MG/250ML KIT 250 ML IV SCH ×3 (04:26→18:02)
[2020-12-20] MEDS: ALBUMIN 25% 50 ML IV SCH (05:16)
[2020-12-20] MEDS: SODIUM CHLOR 0.9% PF (SALINE LOCK) 10ML VIAL/SYR IV SCH ×3 (05:39→22:00)
[2020-12-20] MEDS: ACCU-CHEK COMFORT CURVE STRIP VI SCH ×4 (05:55→18:09)
[2020-12-20 06:35] LABS: INR 1.24 (0.9-1.15); Partial Thromboplastin Time 29.1 sec (23.0-31.2)
[2020-12-20] MEDS: PHENYLEPHRINE IV 250 ML IV SCH ×3 (06:40→23:20)
[2020-12-20 06:44] LABS: Potassium 4.9 mmol/L (3.5-5.1)
[2020-12-20 06:49] LABS: Basophils # (auto) 0 10 ^3/uL (0-0.2); Eosinophils # (auto) 0 10 ^3/uL (0-0.8); Hematocrit 43.8 % (41.0-53.0); Hemoglobin 14.3 g/dL (13.5-17.5); Lymphocytes # (auto) 0.4 10 ^3/uL (0.4-5.4); Mean Corpuscular Hemoglobin 31.3 pg (28.0-32.0); Mean Corpuscular Hgb Conc. 32.7 g/dL (32.0-36.0); Mean Corpuscular Volume 95.9 fL (80.0-100.0); Monocytes # (auto) 0.7 10 ^3/uL (0-1.3); Monocytes % (auto) 6.5 % (0.0-12.0); Neutrophils # (auto) 9.6 10 ^3/uL (1.6-8.6); Neutrophils % (auto) 89.5 % (37.0-80.0); Nucleated Red Blood Cells % 0.1 %; Platelet Count (auto) 120 10^3/uL (140-450); Red Blood Cells 4.57 10^6/uL (4.5-5.90); Red Cell Distribution Width 15.3 % (11.8-14.3); White Blood Cell 10.8 10^3/uL (4.4-10.8)
[2020-12-20 06:54] LABS: Albumin 3.3 g/dL (3.4-5.0); BUN/Creatinine Ratio 51.6; Bilirubin, Total 1.5 mg/dL (0.2-1.0); Calcium 9.2 mg/dL (8.5-10.1); Magnesium 3.1 mg/dL (1.6-2.6); Total Protein 7.3 g/dL (6.4-8.2)
[2020-12-20] MEDS: AMIODARONE 450mg/250ml AE 250 ML IV SCH ×2 (07:00→09:28)
[2020-12-20] MEDS: ASPirin 81 mg TAB PO SCH (09:20)
[2020-12-20] MEDS: DOCUSATE SOD 100 MG CAP PO SCH (09:20)
[2020-12-20] MEDS: ENOXAPARIN SOD 40 MG/0.4 ML SYRINGE SC SCH (09:20)
[2020-12-20] MEDS: FAMOTIDINE (10MG/ML) 2ML VL IV SCH ×2 (09:20→22:00)
[2020-12-20] MEDS: METOPROLOL TARTRATE 25 MG TAB PO SCH ×2 (09:20→22:00)
[2020-12-20] MEDS: fentaNYL Drip 2500mCg/250mlNS 250 ML IV SCH (09:31)
[2020-12-20] MEDS: methylPREDNISolone SOD SUCC 125 MG/2 ML VL IV SCH ×2 (13:44→22:30)
[2020-12-20] MEDS: EPINEPHrine HCL 250 ML IV SCH (14:00)
[2020-12-20] MEDS ORDERED: Glucerna 1.2 Cal 1Liter BOTTLE GT SCH (14:00)
[2020-12-20] MEDS: VASOPRESSIN 50 UNITS in D5W 5% 247.5 ML IV SCH (14:00)
[2020-12-20] MEDS: ATORVASTATIN 20 MG TAB PO SCH (22:31)
[2020-12-21] VITALS (78 sets, daily range): BP systolic 91–122; BP diastolic 53–74
[2020-12-21] MEDS: PIPERACILLIN-TAZOB 3.375GM 100 ML IV SCH ×5 (00:21→23:58)
[2020-12-21] MEDS: AMIODARONE 450mg/250ml AE 250 ML IV SCH (00:22)
[2020-12-21] MEDS: NOREPINEPHRINE 8 MG/250ML KIT 250 ML IV SCH ×4 (00:23→23:05)
[2020-12-21] MEDS: InsuLIN REG 1unit/0.01ml Soln (100units/ml) SC SCH ×4 (00:24→18:00)
[2020-12-21] MEDS: VANCOMYCIN 1GM/250ML 250 ML IV SCH ×2 (02:00→19:27)
[2020-12-21] MEDS: MIDAZOLAM DRIP 50 mg/50mL 50 ML IV SCH ×3 (03:54→13:01)
[2020-12-21] MEDS: methylPREDNISolone SOD SUCC 125 MG/2 ML VL IV SCH ×3 (05:32→22:18)
[2020-12-21] MEDS: ACCU-CHEK COMFORT CURVE STRIP VI SCH ×4 (05:33→19:27)
[2020-12-21] MEDS: SODIUM CHLOR 0.9% PF (SALINE LOCK) 10ML VIAL/SYR IV SCH ×3 (05:33→22:18)
[2020-12-21] MEDS: fentaNYL Drip 2500mCg/250mlNS 250 ML IV SCH (06:39)
[2020-12-21] MEDS: PHENYLEPHRINE IV 250 ML IV SCH ×2 (07:40→16:00)
[2020-12-21] MEDS: DOCUSATE SOD 100 MG CAP PO SCH (09:59)
[2020-12-21] MEDS: ENOXAPARIN SOD 40 MG/0.4 ML SYRINGE SC SCH (09:59)
[2020-12-21] MEDS: ASPirin 81 mg TAB PO SCH (09:59)
[2020-12-21] MEDS: FAMOTIDINE (10MG/ML) 2ML VL IV SCH ×2 (09:59→22:18)
[2020-12-21] MEDS: METOPROLOL TARTRATE 25 MG TAB PO SCH ×2 (10:00→22:00)
[2020-12-21] MEDS: FUROSEMIDE 40 MG/4 ML VIAL IV SCH (12:18)
[2020-12-21] MEDS: VASOPRESSIN 50 UNITS in D5W 5% 247.5 ML IV SCH (14:00)
[2020-12-21] MEDS: EPINEPHrine HCL 250 ML IV SCH (14:00)
[2020-12-21] MEDS: ATORVASTATIN 20 MG TAB PO SCH (22:18)
[2020-12-22] VITALS (41 sets, daily range): BP systolic 91–119; BP diastolic 50–74
[2020-12-22] MEDS: InsuLIN REG 1unit/0.01ml Soln (100units/ml) SC SCH ×4 (00:06→18:32)
[2020-12-22] MEDS: PHENYLEPHRINE IV 250 ML IV SCH ×2 (00:20→17:03)
[2020-12-22] MEDS: MIDAZOLAM DRIP 50 mg/50mL 50 ML IV SCH (01:00)
[2020-12-22] MEDS: NOREPINEPHRINE 8 MG/250ML KIT 250 ML IV SCH (03:10)
[2020-12-22] MEDS: SODIUM CHLOR 0.9% PF (SALINE LOCK) 10ML VIAL/SYR IV SCH ×3 (05:52→23:35)
[2020-12-22] MEDS: AMIODARONE 450mg/250ml AE 250 ML IV SCH (05:52)
[2020-12-22] MEDS: methylPREDNISolone SOD SUCC 125 MG/2 ML VL IV SCH ×3 (05:55→23:36)
[2020-12-22] MEDS: ACCU-CHEK COMFORT CURVE STRIP VI SCH ×5 (05:55→23:38)
[2020-12-22] MEDS: PIPERACILLIN-TAZOB 3.375GM 100 ML IV SCH ×2 (05:55→10:42)
[2020-12-22] MEDS: METOPROLOL TARTRATE 25 MG TAB PO SCH (08:34)
[2020-12-22] MEDS: PROPOFOL 100 ML IV SCH ×2 (08:35→10:40)
[2020-12-22] MEDS: VANCOMYCIN 1GM/250ML 250 ML IV SCH (10:40)
[2020-12-22] MEDS: FAMOTIDINE (10MG/ML) 2ML VL IV SCH ×2 (10:41→23:35)
[2020-12-22] MEDS: FUROSEMIDE 40 MG/4 ML VIAL IV SCH (10:41)
[2020-12-22] MEDS: DOCUSATE SOD 100 MG CAP PO SCH (10:42)
[2020-12-22] MEDS: ASPirin 81 mg TAB PO SCH (10:42)
[2020-12-22] MEDS: ENOXAPARIN SOD 40 MG/0.4 ML SYRINGE SC SCH (10:42)
[2020-12-22] MEDS: fentaNYL Drip 2500mCg/250mlNS 250 ML IV SCH (17:05)
[2020-12-22] MEDS ORDERED: AMIODARONE HCL 200 MG TAB PO SCH (22:00)
[2020-12-22] MEDS ORDERED: LINEZOLID 600MG/300ML 300 ML IV SCH (22:00)
[2020-12-22] MEDS: ATORVASTATIN 20 MG TAB PO SCH (23:37)
[2020-12-23] VITALS (22 sets, daily range): BP systolic 60–126; BP diastolic 30–73
[2020-12-23] MEDS: InsuLIN REG 1unit/0.01ml Soln (100units/ml) SC SCH ×2 (00:04→06:01)
[2020-12-23] MEDS: SODIUM CHLOR 0.9% PF (SALINE LOCK) 10ML VIAL/SYR IV SCH (05:59)
[2020-12-23] MEDS: methylPREDNISolone SOD SUCC 125 MG/2 ML VL IV SCH (05:59)
[2020-12-23] MEDS: ACCU-CHEK COMFORT CURVE STRIP VI SCH (06:00)
[2020-12-23 07:30] LABS: Hematocrit 45.7 % (41.0-53.0); Hemoglobin 14.8 g/dL (13.5-17.5); Mean Corpuscular Hemoglobin 31.3 pg (28.0-32.0); Mean Corpuscular Hgb Conc. 32.5 g/dL (32.0-36.0); Mean Corpuscular Volume 96.2 fL (80.0-100.0); Red Blood Cells 4.75 10^6/uL (4.5-5.90); Red Cell Distribution Width 15.2 % (11.8-14.3); White Blood Cell 8.2 10^3/uL (4.4-10.8)
[2020-12-23 07:42] LABS: BUN/Creatinine Ratio 41.9; Calcium 8.5 mg/dL (8.5-10.1); Magnesium 3.2 mg/dL (1.6-2.6)
[2020-12-23 07:44] LABS: Platelet Count (auto) 72 10^3/uL (140-450)
[2020-12-23 07:45] LABS: Basophils % (manual) 0 (0.0-2.0); Blast Cells 0; Eosinophils % (manual) 0 (0-7); Metamyelocytes % 0; Myelocytes % 0; Promyelocytes % 0; Reactive Lymphocytes 0
[2020-12-23 07:47] LABS: Potassium 6.2 mmol/L (3.5-5.1)
[2020-12-23 11:35] LABS: Band Neutrophils % (manual) 1; Lymphocytes % (manual) 4 (10.0-50.0); Monocytes % (manual) 8 (0-12)
== END 2020-12-23 18:17 | DRG 871 ==
LOC: ER 12:16 → TELE 12:58 → DOU IN ICU 18:03
PROVIDERS: ADMIT Hospitalist; ATTEND Internal Medicine
PROC: 5A1945Z Respiratory Ventilation, 24-96 Consecutive Hours (ICD-10-PCS; principal; 2020-12-19)
PROC: 0BH17EZ Insertion of Endotracheal Airway into Trachea, Via Natural or Artificial Opening (ICD-10-PCS; 2020-12-19)
PROC: 06HM33Z Insertion of Infusion Device into Right Femoral Vein, Percutaneous Approach (ICD-10-PCS; 2020-12-19)
DX: A41.9 Sepsis, unspecified organism (principal); J18.9 Pneumonia, unspecified organism; J96.21 Acute and chronic respiratory failure with hypoxia; J96.22 Acute and chronic respiratory failure with hypercapnia; R65.21 Severe sepsis with septic shock; J44.0 Chronic obstructive pulmonary disease with (acute) lower respiratory infection; J98.11 Atelectasis; J44.1 Chronic obstructive pulmonary disease with (acute) exacerbation; B96.89 Other specified bacterial agents as the cause of diseases classified elsewhere; Z66 Do not resuscitate; E11.65 Type 2 diabetes mellitus with hyperglycemia; E66.01 Morbid (severe) obesity due to excess calories; E78.5 Hyperlipidemia, unspecified; F41.9 Anxiety disorder, unspecified; Z20.822 Contact with and (suspected) exposure to COVID-19; I46.9 Cardiac arrest, cause unspecified; I48.91 Unspecified atrial fibrillation; I50.810 Right heart failure, unspecified; I25.10 Atherosclerotic heart disease of native coronary artery without angina pectoris; I11.0 Hypertensive heart disease with heart failure; I27.21 Secondary pulmonary arterial hypertension; F32.9 Major depressive disorder, single episode, unspecified; R79.82 Elevated C-reactive protein (CRP); Z51.5 Encounter for palliative care; J84.112 Idiopathic pulmonary fibrosis; J98.4 Other disorders of lung; Y95 Nosocomial condition; Z68.31 Body mass index [BMI] 31.0-31.9, adult; Z79.84 Long term (current) use of oral hypoglycemic drugs; Z79.899 Other long term (current) drug therapy; Z82.0 Family history of epilepsy and other diseases of the nervous system; Z82.61 Family history of arthritis; Z83.3 Family history of diabetes mellitus; Z87.891 Personal history of nicotine dependence; Z95.5 Presence of coronary angioplasty implant and graft; Z99.81 Dependence on supplemental oxygen
CPT/HCPCS: 31500; 36415; 36556; 36600; 51702; 71045; 80048; 80053; 80202; 82728; 82805; 82962; 83036; 83605; 83735; 83880; 84100; 84443; 84484; 85007; 85025; 85027; 85379; 85610; 85730; 86141; 87040; 87070; 87077; 87081; 87186; 87205; 87426; 93005; 93306; 94002; 94003; 96365; 96375; G0378; J1815; J2250; J2543; J2704; J3490; J7060